=== PATIENT | male | born 1935 | race Caucasian/White ===

== ENCOUNTER 2016-05-24 10:04 | Observation (INO) | payer OTHER ==
[~2016-05-24] VITALS: Ht 180.3 cm; Wt 118.3 kg
[~2016-05-24 10:04] MED LIST: KEFLEX500 MG PO
[2016-05-24 10:20] LABS: CREATININE 1.3 mg/dL (0.6-1.3); POTASSIUM 3.5 mEq/L (3.7-5.4)
[2016-05-24 10:36] LABS: EOSINOPHIL (%) 2.2 % (0-5); EOSINOPHIL COUNT 0.1 K/uL (0-0.3); HEMATOCRIT 40.5 % (38.0-50.0); IMMATURE GRANULOCYTE (%) 0.2 % (0.0-0.7); INSTRUMENT ABS NEUTROPHIL CT 2.6 K/uL; LYMPHOCYTE COUNT 2.1 K/uL (1.0-2.8); MCH 27.6 PG (29.0-34.0); MCHC 32.6 G/DL (30.0-36.0); MCV 84.7 FL (86-99); MEAN PLAT.VOLUME 10.5 uM^3 (9.0-12.4); MONOCYTE (%) 12.7 % (3-12); MONOCYTE COUNT 0.7 K/uL (0-0.8); NEUTROPHIL (%) 46.4 % (45-76); NEUTROPHIL COUNT 2.6 K/uL (1.8-6.4); PLATELET COUNT 214 K/uL (156-360); RBC DIS.WIDTH-CV 15.3 % (11.8-14.6); RBC DIS.WIDTH-SD 47.5 % (39-53); RED BLOOD COUNT 4.78 M/uL (4.00-5.50); WHITE BLOOD COUNT 5.6 K/uL (4.1-10.2)
[2016-05-24] MEDS ORDERED: ALLOPURINOL300 MG PO (10:37)
[2016-05-24] MEDS ORDERED: LIPITOR20 MG PO (10:37)
[2016-05-24] MEDS ORDERED: ASPIR 8181 M1 PO (10:38)
[2016-05-24] MEDS ORDERED: LEVO-T75 MCG PO (10:38)
[2016-05-24] MEDS ORDERED: OMEPRAZOLE20 MG PO (10:38)
[2016-05-24] MEDS ORDERED: CALTRATE PLUS1 EACH PO (10:39)
[2016-05-24] MEDS ORDERED: DIOVAN320 MG PO (10:39)
[2016-05-24] MEDS ORDERED: TOPROL XL100 MG PO (10:39)
[2016-05-24 10:45] LABS: POINT-OF-CARE METER ID UU13113702
[2016-05-24 11:09] LABS: ALKALINE PHOSPHATASE 66 IU/L (3-129); ANION GAP 12 MEQ/L (2-14); CHLORIDE 102 MEQ/L (99-109); GFR ESTIMATE (CALCULATED) 57 mL/min/; GLUCOSE 183 mg/dL (70-99); LIPASE 47 U/L (1.0-51.0); MAGNESIUM 1.7 mg/dl (1.3-2.7); POTASSIUM 3.7 MEQ/L (3.7-5.4); SAMPLE HEMOLYSIS CHECK 0; SAMPLE ICTERIC CHECK 0; SAMPLE LIPEMIA CHECK 0; SODIUM 137 MEQ/L (136-147); TOTAL BILIRUBIN 0.5 MG/DL (0.0-1.0); UREA NITROGEN (BUN) 14 mg/dL (9-23)
[2016-05-24 11:11] LABS: TROP-I INTERPRETATION NEGATIVE; TROPONIN-I 0.01 ng/mL (0.0-0.30)
[2016-05-24 12:51] LABS: ADD MIUA? YES; BILIRUBIN NEGATIVE; BLOOD NEGATIVE; COLOR YELLOW ((YELLOW)); GLUCOSE (STRIP) NEGATIVE; KETONES NEGATIVE; LEUKOCYTES NEGATIVE; NITRITE NEGATIVE; PROTEIN (STRIP) 100; SPECIFIC GRAVITY 1.014 (1.000-1.030); UROBILINOGEN 0.2 MG/DL (0.2-1.0)
[2016-05-24 13:03] LABS: BACTERIA NONE SEEN /HPF; EPITHELIAL CELLS RARE /HPF; HYALINE CASTS 0-5 /LPF; MUCUS TRACE /LPF; RED BLOOD CELLS 0-5 /HPF (0-5); UCUL ADDED? NO; WHITE BLOOD CELLS 0-5 /HPF (0-5)
[2016-05-24] MEDS ORDERED: DIOVAN HCT 31 TABLET PO (13:22)
[2016-05-24] MEDS ORDERED: KRILL OIL 3001 EACH PO (13:25)
[2016-05-24] MEDS ORDERED: K-DUR10 MEQ PO (13:25)
[2016-05-24] MEDS ORDERED: MUCINEX600 MG PO (13:26)
[2016-05-24] MEDS ORDERED: MOTRIN IB200 MG PO (13:26)
[2016-05-24] MEDS ORDERED: DAY TIME COLD-237 ML PO (13:27)
[2016-05-24] MEDS ORDERED: NIGHT TIME COL296 ML PO (13:27)
[2016-05-24 13:57] LABS: INFLUENZA A VIRAL ANTIGEN NEGATIVE
[2016-05-24 13:58] LABS: INFLUENZA B VIRAL ANTIGEN POSITIVE
[2016-05-24 16:45] VITALS: BP 167/77
[2016-05-24 17:59] LABS: TROP-I INTERPRETATION NEGATIVE; TROPONIN-I 0.02 ng/mL (0.0-0.30)
[2016-05-24 21:00] VITALS: BP 155/78
[2016-05-24 23:38] LABS: TROP-I INTERPRETATION NEGATIVE; TROPONIN-I < 0.01 ng/mL (0.0-0.30)
[2016-05-25 00:51] VITALS: BP 164/98
[2016-05-25 00:53] VITALS: BP 164/75
[2016-05-25 06:23] LABS: HEMATOCRIT 35.6 % (38.0-50.0); MCH 27.6 PG (29.0-34.0); MCHC 32.6 G/DL (30.0-36.0); MCV 84.8 FL (86-99); MEAN PLAT.VOLUME 10.1 uM^3 (9.0-12.4); PLATELET COUNT 186 K/uL (156-360); RBC DIS.WIDTH-CV 15.3 % (11.8-14.6); RBC DIS.WIDTH-SD 46.7 % (39-53)
[2016-05-25 06:25] LABS: WHITE BLOOD COUNT 3.2 K/uL (4.1-10.2)
[2016-05-25 07:07] VITALS: BP 138/95
[2016-05-25 07:58] VITALS: BP 132/74
[2016-05-25] MEDS ORDERED: OSELTAMIVIR PHO75 MG PO (09:58)
== END 2016-05-25 11:31 | disposition home or self-care (01) ==
LOC: EME → EDBD 10:04 → EDOF 14:48 → 5WEST 14:48
PROVIDERS: Emergency Medicine; Internal Medicine
DX: J10.1 Influenza due to other identified influenza virus with other respiratory manifestations (principal); R07.89 Other chest pain; N28.1 Cyst of kidney, acquired; K80.20 Calculus of gallbladder without cholecystitis without obstruction; K44.9 Diaphragmatic hernia without obstruction or gangrene
CPT/HCPCS: 71010; 74176; 80047; 80053; 81003; 82948; 83605; 83690; 83735; 84484; 85025; 85027; 87040; 87502; 93005; 99281; 99284; G0378; J1650; J2405; J7030

== ENCOUNTER 2016-08-29 06:05 | Emergency (ER) | payer OTHER ==
[~2016-08-29] VITALS: Ht 177.8 cm; Wt 118.0 kg
[~2016-08-29 06:05] MED LIST changes: +ALLOPURINOL300 MG PO; +ASPIR 8181 M1 PO; +CALTRATE PLUS1 EACH PO; +DAY TIME COLD-237 ML PO; +DIOVAN HCT 31 TABLET PO; +DIOVAN320 MG PO; +K-DUR10 MEQ PO; +KRILL OIL 3001 EACH PO; +LEVO-T75 MCG PO; +LIPITOR20 MG PO; +MOTRIN IB200 MG PO; +MUCINEX600 MG PO; +NIGHT TIME COL296 ML PO; +OMEPRAZOLE20 MG PO; +OSELTAMIVIR PHO75 MG PO; +TOPROL XL100 MG PO
[2016-08-29 07:10] LABS: EOSINOPHIL (%) 0.2 % (0-5); HEMATOCRIT 37.6 % (38.0-50.0); IMMATURE GRANULOCYTE (%) 0.3 % (0.0-0.7); INSTRUMENT ABS NEUTROPHIL CT 8.5 K/uL; LYMPHOCYTE COUNT 0.4 K/uL (1.0-2.8); MCV 87.9 FL (86-99); MEAN PLAT.VOLUME 10.4 uM^3 (9.0-12.4); MONOCYTE (%) 4.9 % (3-12); MONOCYTE COUNT 0.5 K/uL (0-0.8); NEUTROPHIL (%) 89.6 % (45-76); NEUTROPHIL COUNT 8.5 K/uL (1.8-6.4); PLATELET COUNT 204 K/uL (156-360); RBC DIS.WIDTH-CV 15.6 % (11.8-14.6); RBC DIS.WIDTH-SD 49.6 % (39-53); RED BLOOD COUNT 4.28 M/uL (4.00-5.50); WHITE BLOOD COUNT 9.5 K/uL (4.1-10.2)
[2016-08-29 07:25] LABS: ANION GAP 10 MEQ/L (2-14); CHLORIDE 104 MEQ/L (99-109); POTASSIUM 4.1 MEQ/L (3.7-5.4); SAMPLE HEMOLYSIS CHECK 0; SAMPLE ICTERIC CHECK 0; SAMPLE LIPEMIA CHECK 0; SODIUM 137 MEQ/L (136-147)
[2016-08-29 07:30] LABS: GFR ESTIMATE (CALCULATED) 57 mL/min/; GLUCOSE 197 mg/dL (70-99); UREA NITROGEN (BUN) 20 mg/dL (9-23)
[2016-08-29] MEDS ORDERED: AUGMENTIN875 MG PO (07:48)
[2016-08-29 08:29] VITALS: BP 125/56
== END 2016-08-29 08:32 | disposition home or self-care (01) ==
LOC: EME 06:05
PROVIDERS: Emergency Medicine
DX: J20.9 Acute bronchitis, unspecified (principal); I10 Essential (primary) hypertension; R01.1 Cardiac murmur, unspecified; Z96.653 Presence of artificial knee joint, bilateral
CPT/HCPCS: 71020; 80048; 83605; 85025; 87040; 99281; 99284